=== PATIENT | female | born 1950 | race Caucasian/White ===

== ENCOUNTER 2018-01-18 16:04 | Emergency (ER) | payer OTHER ==
--- NOTE | 2018-01-18 16:46 | RAD ---
LEFT LOWER LEG TWO VIEWS: 01/18/18 HISTORY: Left leg injury. FINDINGS: Mild degenerative changes of the knee and ankle. No acute fracture, dislocation, or aggressive osseou s erosions. IMPRESSION: No acute osseous abnormalities are demonstrated. POS: [facility]
== END 2018-01-18 17:08 | disposition home or self-care (01) ==
LOC: SCSER 16:04
DX: S80.12XA Contusion of left lower leg, initial encounter (principal); M81.0 Age-related osteoporosis without current pathological fracture; Z79.899 Other long term (current) drug therapy; W01.198A Fall on same level from slipping, tripping and stumbling with subsequent striking against other object, initial encounter